=== PATIENT | female | born 1970 | race Caucasian/White ===

== ENCOUNTER 2019-05-02 11:56 | Outpatient (CLI) | payer MEDICARE, MEDICAID, SELFPAY ==
--- NOTE | 2019-05-02 11:25 | DI.RAD_ITS ---
EXAM: XR HIP LT COMPLETE AP PELVIS INDICATION: left hip pain. COMPARISON: XR HIP MIN 2V LT from 03/24/2019 TECHNIQUE: 2D digital imaging was performed. FINDINGS: The hip joint spaces are well maintained. There is mild acetabular spurring bilaterally. There are d egenerative changes of the SI joints, right greater than left. IMPRESSION: Mild degenerative changes.
== END 2019-05-02 12:16 ==
PROVIDERS: Visit Provider Physician Assistant
DX: M25.552 Pain in left hip (principal); M16.12 Unilateral primary osteoarthritis, left hip; M53.3 Sacrococcygeal disorders, not elsewhere classified
CPT/HCPCS: 99203; 73502

== ENCOUNTER 2019-05-13 01:39 | Outpatient (CLI) | payer MEDICARE, MEDICAID, SELFPAY ==
--- NOTE | 2019-05-13 10:15 | DI.RAD_ITS ---
EXAM: RF JOINT INJECTION FLUORO GUID CLINICAL HISTORY: PAIN, PRIMARY OA LT HIP, M16.12 TECHNIQUE: COMPARISON: No exams were available for comparison FINDINGS: C-arm fluoroscopy was utilized by Dr. Lund during left hip injection. Hard copy shows intra-loree cular left hip injection. IMPRESSION:
--- NOTE | 2019-05-13 10:18 | W.PROCNOTE ---
Date of service: 05/13/19 Time of Service: 10:18 Procedure Note Date of procedure: 05/13/19 Procedure: Left Hip Injection with Fluoroscopic Guidance Surgeon/Proceduralist/Physician: Raymond Lund Procedure Diagnosis: Left Hip Osteoarthritis Procedure Indications: Denia has had persistent pain of the LEFT hip and groin. Noninvasive measures have been tried. To serve as both diagnostic and therapeutic, an injection under fluoroscopy was recommended. I had discussed the risks of the procedure and the patient elected to proceed. Procedure Description: Denia was greeted in the flouroscopy room. The correct side was identified and the consent was reviewed with the patient and signed. The patient was then placed in the supine position on the fluoroscopy table. The LEFT hip was then prepped with Chloraprep. The anterolateral injection starting point was identiifed by bony landmarks and fluoroscopy. The skin and soft tissue in the tract of the injection was anesthetized with 1% Lidocaine. A spinal needle was then inserted deep into the hip joint at the level of the lateral femoral neck under fluoroscopic guidance. A small amount of Omnipaque solution was injected to confirm intraarticular placement. Once confirmed, the hip was injected with 6cc of 0.5% Bupivicaine and 80mg of Depo-Medrol. A bandaid was placed on the injection site. The patient tolerated the procedure well and noted improvement in pre-injection pain.
[2019-05-13] MEDS: Bupivacaine 0.5% Pres-Free 10 ML VIAL 6 ML IJ (10:20)
[2019-05-13] MEDS: Omnipaque 300 MG/ML 10 ML BTL IJ (10:21)
[2019-05-13] MEDS: methylPREDNISolone ACETATE 40 MG/ML VIAL IM (10:22)
== END 2019-05-13 01:59 ==
PROVIDERS: Visit Provider Student in an Organized Health Care Education/Training Program
DX: M25.552 Pain in left hip (principal); M16.12 Unilateral primary osteoarthritis, left hip
CPT/HCPCS: 20610; 77002; J1030

== ENCOUNTER → 2019-05-16 08:04 | Outpatient (BNVA) | payer MEDICARE, MEDICAID, SELFPAY | PROVIDERS: Visit Provider Student in an Organized Health Care Education/Training Program | DX: R69 Illness, unspecified (principal) ==

== ENCOUNTER 2021-07-08 14:59 | Outpatient (CLI) | payer MEDICARE, MEDICAID, SELFPAY ==
--- NOTE | 2021-07-08 14:45 | DI.RAD_ITS ---
Exam(s) XR PELVIS AP EXAM: XR PELVIS AP CLINICAL HISTORY: pain. TECHNIQUE: 2D digital imaging was performed. COMPARISON: CR XR HIP LT COMPLETE AP PELVIS from 05/02/2019 FINDINGS: There is no evidence of pelvic nor hip fracture. Sacroiliac joints appear unremarkable. No osseous lesions IMPRESSION: DATA REPOSITORY: RADIATION DOSE DELIVERED:
--- NOTE | 2021-07-08 14:45 | DI.RAD_ITS ---
Exam(s) XR LUMBAR SPINE AP, LAT EXAM: XR LUMBAR SPINE AP, LAT CLINICAL HISTORY: pain in lumbar back radiating to hip. TECHNIQUE: 2D digital imaging was performed. COMPARISON: No exams were available for comparison FINDINGS: No evidence of fracture, listhesis, or pars defects. There is advanced disc space narrowing at L5-S1 level. Mild disc space narrowing L4-5. Other disc spaces exhibit normal height. No scoliosis. No osseous lesions. Sacroiliac joints appear unremarkable. IMPRESSION: Advanced disc space narrowing L5-S1 level DATA REPOSITORY: RADIATION DOSE DELIVERED:
== END 2021-07-08 15:00 | disposition home or self-care (01) ==
LOC: DIORS 14:59
PROVIDERS: PCP Physician Assistant Medical; Referring Provider Physician Assistant Medical; Visit Provider Student in an Organized Health Care Education/Training Program
DX: M16.12 Unilateral primary osteoarthritis, left hip (principal); M47.816 Spondylosis without myelopathy or radiculopathy, lumbar region; Z98.890 Other specified postprocedural states
CPT/HCPCS: 99214; 72100; 72170